=== PATIENT | female | born 1995 | race Caucasian/White ===

== ENCOUNTER 2021-08-07 14:10 | Outpatient (CLI) | payer OTHER ==
[2021-08-07] MEDS ORDERED: IRON325 MG PO (14:39)
[2021-08-07] MEDS ORDERED: PRENATAL TABLE1 EAC3 PO (14:39)
== END 2021-08-07 22:05 | disposition home or self-care (01) ==
LOC: OBS/DEL 14:10
PROVIDERS: ATTEND Specialist
DX: O26.893 Other specified pregnancy related conditions, third trimester (principal); Z3A.35 35 weeks gestation of pregnancy; R51.9 Headache, unspecified

== ENCOUNTER 2021-08-29 10:35 | Inpatient (IN) | payer OTHER ==
[~2021-08-29] VITALS: Ht 152.4 cm; Wt 75.3 kg
[~2021-08-29 10:35] MED LIST: IRON325 MG PO; PRENATAL TABLE1 EAC3 PO
== END 2021-08-31 13:35 | disposition home or self-care (01) | DRG 788 ==
LOC: LDR 10:35 → OB/GYN 22:50
PROVIDERS: ADMIT Specialist; ATTEND Specialist
PROC: 4A1HXCZ Monitoring of Products of Conception, Cardiac Rate, External Approach (ICD-10-PCS; 2021-08-29)
PROC: 10D00Z1 Extraction of Products of Conception, Low, Open Approach (ICD-10-PCS; principal; 2021-08-29 21:30)
DX: O62.0 Primary inadequate contractions (principal); Z20.822 Contact with and (suspected) exposure to COVID-19; Z37.0 Single live birth; Z3A.38 38 weeks gestation of pregnancy